=== PATIENT | female | born 1990 | race Caucasian/White ===

== ENCOUNTER 2017-11-01 11:52 | Emergency (ER) | payer OTHER, MEDICAID ==
[2017-11-01 13:59] LABS: HEMATOCRIT 37.2 % (36.0-47.0); HEMOGLOBIN 12.5 g/dl (12.0-16.0); MEAN CORPUSCULAR HEMOGLOBIN 31.5 pg (27.0-33.0); MEAN CORPUSCULAR HGB CONC 33.6 g/dl (32.0-36.5); MEAN CORPUSCULAR VOLUME 93.7 fl (80.0-96.0); PLATELET COUNT, AUTOMATED 186 10^3/uL (150-450); RED BLOOD COUNT 3.97 10^6/uL (4.00-5.40); RED CELL DISTRIBUTION WIDTH 12.5 % (11.5-14.5); WHITE BLOOD COUNT 10.3 10^3/uL (4.0-10.0)
[2017-11-01 14:23] LABS: HCG, SERUM QUANTITATIVE 61 MIU/ML
[2017-11-01 14:31] LABS: APPEARANCE, URINE HAZY (CLEAR); BACTERIA, URINE AUTO 1+ (NEGATIVE); BILIRUBIN, URINE AUTO NEGATIVE (NEGATIVE); BLOOD, URINE BLOOD 3+ (NEGATIVE); COLOR, URINE YELLOW (YELLOW); GLUCOSE, URINE (UA) AUTO NEGATIVE (NEGATIVE); KETONE, URINE AUTO NEGATIVE (NEGATIVE); LEUKOCYTE ESTERASE, URINE AUTO NEGATIVE (NEGATIVE); MUCUS, URINE MODERATE (NEGATIVE); NITRITE, URINE AUTO NEGATIVE (NEGATIVE); PROTEIN, URINE AUTO NEGATIVE (NEGATIVE); RBC, URINE AUTO TNTC /HPF (0-3); SPECIFIC GRAVITY URINE AUTO 1.012 (1.002-1.035); SQUAMOUS EPITHELIAL CELL UR AU 6 /HPF (0-6); UROBILINOGEN, URINE AUTO 0.2 mg/dL (0.0-2.0); WBC, URINE AUTO 8 /HPF (0-3)
[2017-11-01 16:38] LABS: CHLAMYDIA DNA AMPLIFICATION NEGATIVE (NEGATIVE); GC DNA AMPLIFICATION NEGATIVE (NEGATIVE)
== END 2017-11-01 16:50 | disposition home or self-care (01) ==
LOC: M ED 11:52
DX: O20.0 Threatened abortion (principal); Z3A.01 Less than 8 weeks gestation of pregnancy; O99.331 Smoking (tobacco) complicating pregnancy, first trimester; F17.210 Nicotine dependence, cigarettes, uncomplicated; Z88.8 Allergy status to other drugs, medicaments and biological substances
CPT/HCPCS: 76801

== ENCOUNTER → 2017-11-07 | Outpatient (CLI) | payer OTHER ==
[2017-11-07 14:32] LABS: HCG, SERUM QUANTITATIVE 4 MIU/ML
== END ==
LOC: M LAB 13:33
DX: O02.1 Missed abortion (principal)
CPT/HCPCS: 84702

== ENCOUNTER 2018-05-19 20:33 | Emergency (ER) | payer OTHER ==
[2018-05-19 21:05] LABS: BASO # 0.1 10^3/uL (0.0-0.2); BASO % 0.6 % (0.0-1.0); EOS # 0.4 10^3/uL (0.0-0.50); EOS % 4.3 % (0.0-3.0); HEMATOCRIT 37.6 % (36.0-47.0); HEMOGLOBIN 12.5 g/dl (12.0-15.5); IMMATURE GRANULOCYTE % 0.4 % (0-3.0); LYMPH # 3.3 10^3/uL (1.5-6.5); LYMPH % 32.8 % (24.0-44.0); MEAN CORPUSCULAR HEMOGLOBIN 31.4 pg (27.0-33.0); MEAN CORPUSCULAR HGB CONC 33.2 g/dl (32.0-36.5); MEAN CORPUSCULAR VOLUME 94.5 fl (80.0-96.0); MONO # 0.6 10^3/uL (0.0-0.8); NEUTROPHILS # 5.7 10^3/uL (1.8-7.7); NEUTROPHILS % 55.9 % (36.0-66.0); PLATELET COUNT, AUTOMATED 199 10^3/uL (150-450); RED BLOOD COUNT 3.98 10^6/uL (4.00-5.40); RED CELL DISTRIBUTION WIDTH 12.2 % (11.5-14.5); WHITE BLOOD COUNT 10.2 10^3/uL (4.0-10.0)
[2018-05-19] MEDS: ONDANSETRON 4MG/2ML VIAL (J2405) IV (21:05)
[2018-05-19] MEDS: NS 1,000 ML IV (21:05)
[2018-05-19] MEDS: KETOROLAC 30 MG/ML VIAL (J1885) IV (21:05)
[2018-05-19 21:23] LABS: KETONE, URINE AUTO RFX NEGATIVE (NEGATIVE); LEUKOCYTE ESTERASE UR AUTO RFX 2+ (NEGATIVE); NITRITE, URINE AUTO RFX NEGATIVE (NEGATIVE); RBC, URINE AUTO RFX 4 /HPF (0-3); SPECIFIC GRAVITY UR AUTO RFX 1.006 (1.002-1.035); SQUAM EPITHELIAL CELL UR AURFX 1 /HPF (0-6); WBC, URINE AUTO RFX 26 /HPF (0-3)
[2018-05-19 21:53] LABS: ALBUMIN 4.3 GM/DL (3.2-5.2); ALBUMIN/GLOBULIN RATIO 1.16 (1.00-1.93); ALKALINE PHOSPHATASE 62 U/L (45-117); ALT/SGPT 15 U/L (12-78); ANION GAP 7 MEQ/L (8-16); AST/SGOT 14 U/L (7-37); BILIRUBIN,DIRECT < 0.1 MG/DL (0.0-0.2); BILIRUBIN,TOTAL 0.4 MG/DL (0.2-1.0); BLOOD UREA NITROGEN 12 MG/DL (7-18); CALCIUM LEVEL 9.3 MG/DL (8.5-10.1); CARBON DIOXIDE LEVEL 28 MEQ/L (21-32); CHLORIDE LEVEL 109 MEQ/L (98-107); CREATININE FOR GFR 0.78 MG/DL (0.55-1.30); GLOMERULAR FILTRATION RATE > 60.0 (>60); GLUCOSE, FASTING 77 MG/DL (70-100); LIPASE 229 U/L (73-393); POTASSIUM SERUM 3.7 MEQ/L (3.5-5.1); SODIUM LEVEL 144 MEQ/L (136-145)
[2018-05-19] MEDS: MORPHINE 2 MG/ML 1ML SYRINGE (J2270) IV (22:01)
== END 2018-05-19 23:30 | disposition home or self-care (01) ==
LOC: M ED 20:33
DX: N30.01 Acute cystitis with hematuria (principal); Z87.442 Personal history of urinary calculi; Z72.0 Tobacco use; Z88.8 Allergy status to other drugs, medicaments and biological substances
CPT/HCPCS: J2405

== ENCOUNTER 2023-03-08 05:20 | Emergency (ER) | payer OTHER ==
[~2023-03-08] VITALS: Ht 157.5 cm; Wt 52.3 kg
[~2023-03-08 05:20] MED LIST: IBUP600T26 PO; MACR100C43 PO; OXYC-208 PO; PERC5TAB PO; TRAM100T13 PO
[2023-03-08 07:20] VITALS: BP 108/62; TEMP 97.1; O2SAT 99
[2023-03-08] MEDS ORDERED: AUGMENTIN 875 MG TAB PO ONE (07:30)
[2023-03-08] MEDS ORDERED: ACET-907 PO (07:30)
[2023-03-08] MEDS ORDERED: IBUP-1022 PO (07:30)
[2023-03-08] MEDS ORDERED: AMOX875T2 PO (07:32)
[2023-03-08] MEDS ORDERED: PSEU120T19 PO (07:32)
[2023-03-08] MEDS ORDERED: dexAMETHasone 4 MG TAB PO ONE (07:45)
[2023-03-08] MEDS ORDERED: dexAMETHasone 2 MG TAB PO ONE (07:45)
== END 2023-03-08 08:22 | disposition home or self-care (01) ==
LOC: M ED 05:20
DX: J02.0 Streptococcal pharyngitis (principal); H65.02 Acute serous otitis media, left ear; F17.200 Nicotine dependence, unspecified, uncomplicated; Z88.8 Allergy status to other drugs, medicaments and biological substances

== ENCOUNTER → 2024-02-29 | Outpatient (CLI) | payer OTHER ==
[~2024-02-29] MED LIST changes: +ACET-907 PO; +AMOX875T2 PO; +IBUP-1022 PO; +PSEU120T19 PO
== END ==
LOC: M RAD 12:22
PROVIDERS: ATTEND Anesthesiology Pain Medicine
DX: M54.50 Low back pain, unspecified (principal)

== ENCOUNTER 2024-05-10 23:23 | Emergency (ER) | payer OTHER ==
[~2024-05-10] VITALS: Ht 157.5 cm; Wt 48.2 kg
[2024-05-11 01:30] LABS: BASO # 0.1 10^3/uL (0.0-0.2); BASO % 0.8 % (0.0-1.0); EOS % 0.5 % (0.0-3.0); HEMATOCRIT 32.3 % (36.0-47.0); HEMOGLOBIN 11.2 g/dl (12.0-15.5); LYMPH # 2.3 10^3/uL (1.5-5.0); LYMPH % 34.6 % (24.0-44.0); MEAN CORPUSCULAR HEMOGLOBIN 32.2 pg (27.0-33.0); MEAN CORPUSCULAR HGB CONC 34.7 g/dl (32.0-36.5); MEAN CORPUSCULAR VOLUME 92.8 fl (80.0-96.0); MONO # 0.5 10^3/uL (0.0-0.8); MONO % 7.9 % (2.0-8.0); NEUTROPHILS # 3.7 10^3/uL (1.5-8.5); NEUTROPHILS % 55.9 % (36.0-66.0); PLATELET COUNT, AUTOMATED 210 10^3/uL (150-450); RED BLOOD COUNT 3.48 10^6/uL (4.00-5.40); WHITE BLOOD COUNT 6.6 10^3/uL (4.0-10.0)
[2024-05-11] MEDS: AMOXICILLIN 500 MG CAP PO ONE (01:35)
[2024-05-11 01:40] LABS: HCG, SERUM QUALITATIVE NEGATIVE (NEGATIVE)
[2024-05-11 01:43] LABS: ERYTHROCYTE SEDIMENTATION RATE 4 mm/hr (0-20)
[2024-05-11 01:46] LABS: C REACTIVE PROTEIN QUANTITATIV < 0.40 MG/DL (<1.0)
[2024-05-11 01:48] LABS: ALBUMIN 4.4 G/DL (3.2-5.2); ALKALINE PHOSPHATASE 55 U/L (46-116); ALT/SGPT 17 U/L (7.0-40); AST/SGOT 18 U/L (<34); BILIRUBIN,TOTAL 0.8 MG/DL (0.3-1.2); BLOOD UREA NITROGEN 13 MG/DL (9-23); CALCIUM LEVEL 8.9 MG/DL (8.5-10.1); CARBON DIOXIDE LEVEL 25 MMOL/L (20-31); CHLORIDE LEVEL 103 MMOL/L (98-107); CREATININE FOR GFR 0.79 MG/DL (0.55-1.30); GLOMERULAR FILTRATION RATE > 60.0 (>60); GLUCOSE, FASTING 90 MG/DL (60-100); MAGNESIUM LEVEL 2.1 MG/DL (1.8-2.4); POTASSIUM SERUM 3.5 MMOL/L (3.5-5.1); SODIUM LEVEL 136 MMOL/L (136-145); TOTAL PROTEIN 7.3 G/DL (5.7-8.2)
[2024-05-11] MEDS: KETOROLAC 30 MG/ML 1ML VIAL IV ONE (01:51)
[2024-05-11] MEDS: PSEUDOEPHEDRINE 30 MG TAB PO ONE (01:52)
[2024-05-11] MEDS ORDERED: KETOROLAC 30 MG/ML 1ML VIAL IM ONE (02:00)
[2024-05-11] MEDS ORDERED: AMOX875T2 PO (02:11)
[2024-05-11] MEDS ORDERED: FLON1SPR NARES (02:11)
[2024-05-11] MEDS ORDERED: METH-1164 PO (02:11)
[2024-05-11] MEDS ORDERED: IBUP-1022 PO (02:11)
[2024-05-11] MEDS ORDERED: ELIM5CRE2 TOP (02:11)
[2024-05-11 02:16] VITALS: BP 107/58; TEMP 97.9; O2SAT 100
[2024-05-11 02:27] LABS: RSV AMPLIFICATION NEGATIVE (NEGATIVE)
== END 2024-05-11 03:16 | disposition home or self-care (01) ==
LOC: M ED 23:23
DX: M62.838 Other muscle spasm (principal); B86 Scabies; H66.91 Otitis media, unspecified, right ear; F17.290 Nicotine dependence, other tobacco product, uncomplicated; Z88.8 Allergy status to other drugs, medicaments and biological substances; Z79.1 Long term (current) use of non-steroidal anti-inflammatories (NSAID); Z79.2 Long term (current) use of antibiotics; Z79.899 Other long term (current) drug therapy
CPT/HCPCS: 80053; 83735; 84703; 85025; 85652; 86140; 86618; 87631; 96374; 99283; J1885

== ENCOUNTER 2024-06-28 21:06 | Observation (INO) | payer OTHER ==
[~2024-06-28] VITALS: Ht 157.5 cm; Wt 53.8 kg
[~2024-06-28 21:06] MED LIST changes: +ELIM5CRE2 TOP; +FLON1SPR NARES; +METH-1164 PO
[2024-06-28 21:59] LABS: BASO % 0.6 % (0.0-1.0); EOS # 0.2 10^3/uL (0.0-0.5); HEMATOCRIT 29.1 % (36.0-47.0); HEMOGLOBIN 10.2 g/dl (12.0-15.5); LYMPH # 2.5 10^3/uL (1.5-5.0); LYMPH % 38.2 % (24.0-44.0); MEAN CORPUSCULAR HEMOGLOBIN 32.1 pg (27.0-33.0); MEAN CORPUSCULAR HGB CONC 35.1 g/dl (32.0-36.5); MEAN CORPUSCULAR VOLUME 91.5 fl (80.0-96.0); MONO # 0.6 10^3/uL (0.0-0.8); NEUTROPHILS # 3.2 10^3/uL (1.5-8.5); PLATELET COUNT, AUTOMATED 197 10^3/uL (150-450); RED BLOOD COUNT 3.18 10^6/uL (4.00-5.40); WHITE BLOOD COUNT 6.4 10^3/uL (4.0-10.0)
[2024-06-28 22:11] LABS: BARBITURATES URINE NEGATIVE (NEGATIVE); CANNABINOIDS URINE NEGATIVE (NEGATIVE); COCAINE METABOLITE URINE NEGATIVE (NEGATIVE); METHADONE URINE NEGATIVE (NEGATIVE); OPIATES URINE NEGATIVE (NEGATIVE); PHENCYCLIDINE URINE NEGATIVE (NEGATIVE)
[2024-06-28 22:12] LABS: AMPHETAMINES LEVEL URINE NEGATIVE (NEGATIVE); BENZODIAZEPINES URINE NEGATIVE (NEGATIVE)
[2024-06-28 22:14] LABS: CK-MB VALUE MASS 1.4 NG/ML (<3.6)
[2024-06-28 22:15] LABS: CPK CREATINE PHOSPHOKINASE 148 U/L (34-145); MB/CK RELATIVE INDEX 0.94 (< OR =4)
[2024-06-28 23:11] LABS: BLOOD UREA NITROGEN 13 MG/DL (9-23); CALCIUM LEVEL 9.3 MG/DL (8.5-10.1); CARBON DIOXIDE LEVEL 25 MMOL/L (20-31); CHLORIDE LEVEL 109 MMOL/L (98-107); CREATININE FOR GFR 0.81 MG/DL (0.55-1.30); GLOMERULAR FILTRATION RATE > 60.0 (>60); GLUCOSE, FASTING 83 MG/DL (60-100); POTASSIUM SERUM 3.8 MMOL/L (3.5-5.1); SODIUM LEVEL 140 MMOL/L (136-145)
[2024-06-28 23:13] LABS: THYROID STIMULATING HORMONE 1.899 uIU/ML (0.55-4.78)
[2024-06-28 23:22] LABS: APPEARANCE, URINE MANUAL CLEAR (CLEAR); COLOR, URINE MANUAL COLORLESS (YELLOW)
[2024-06-28 23:23] LABS: BILIRUBIN, URINE MANUAL NEGATIVE (NEGATIVE); BLOOD URINE MANUAL POSITIVE (NEGATIVE); GLUCOSE, URINE (UA) MANUAL NEGATIVE (NEGATIVE); KETONE, URINE MANUAL NEGATIVE (NEGATIVE); LEUKOCYTE ESTERASE, URINE MAN NEGATIVE (NEGATIVE); NITRITE, URINE MANUAL NEGATIVE (NEGATIVE); PROTEIN, URINE MANUAL NEGATIVE (NEGATIVE); SPECIFIC GRAVITY,URINE MANUAL 1.005 (1.002-1.035); UROBILINOGEN, URINE MANUAL NORMAL (NORMAL)
[2024-06-28 23:27] LABS: HCG, SERUM QUALITATIVE NEGATIVE (NEGATIVE)
[2024-06-28 23:35] LABS: PTH INTACT 24.6 PG/ML (18.5-88.0)
[2024-06-28 23:41] LABS: BACTERIA, URINE NONE SEEN; HYALINE CAST, URINE NONE SEEN /lpf (0-1); SQUAMOUS EPITHELIAL CELL URINE SMALL AMOUNT /hpf (SMALL AMT); WBC, URINE 0-1 /hpf (0-3)
[2024-06-29] VITALS (15 sets, daily range): BP systolic 105–114; BP diastolic 52–66; TEMP 97.7–98.7; O2SAT 98–100
[2024-06-29] MEDS ORDERED: ISOVUE-370 76% 100ML VIAL As Ordered ONE (00:21)
[2024-06-29] MEDS ORDERED: DOXY-440 PO (02:10)
[2024-06-29] MEDS ORDERED: HOLTER MONITOR XX (02:14)
[2024-06-29] MEDS: DOXYCYCLINE HYCLATE 100MG TABLET PO ONE (02:35)
[2024-06-29] MEDS ORDERED: MAALOX 30 ML SUSP *UDC PO PRN (04:30)
[2024-06-29] MEDS ORDERED: MOM 30ML SUSPENSION UDC PO PRN (04:30)
[2024-06-29] MEDS ORDERED: ACETAMINOPHEN 325 MG TAB PO PRN (04:30)
[2024-06-29] MEDS ORDERED: AMPH1CAP5 PO (04:32)
[2024-06-29] MEDS ORDERED: OXYC10TA12 PO (04:32)
[2024-06-29] MEDS ORDERED: HOME MED LIST COMPLETE! XX SCH (04:35)
[2024-06-29 06:58] LABS: ALBUMIN 3.8 G/DL (3.2-5.2); BILIRUBIN,DIRECT 0.2 MG/DL (<0.4); BILIRUBIN,TOTAL 0.5 MG/DL (0.3-1.2); TOTAL PROTEIN 6.5 G/DL (5.7-8.2)
[2024-06-29 06:59] LABS: CK-MB VALUE MASS 1.1 NG/ML (<3.6); MB/CK RELATIVE INDEX 0.96 (< OR =4)
[2024-06-29] MEDS: ENOXAPARIN 40MG/0.4ML SYRINGE (J1650 PER 10MG) SC SCH (09:00)
[2024-06-29] MEDS: DOCUSATE SODIUM 100MG CAPSULE PO SCH (09:00)
[2024-06-29] MEDS: DOXYCYCLINE HYCLATE 100MG TABLET PO SCH (12:47)
[2024-06-30] VITALS (9 sets, daily range): BP systolic 110–117; BP diastolic 64–67; TEMP 97.9–98.4; O2SAT 98–100
[2024-06-30 06:05] LABS: HEMATOCRIT 32.5 % (36.0-47.0); HEMOGLOBIN 10.7 g/dl (12.0-15.5); MEAN CORPUSCULAR HEMOGLOBIN 31.4 pg (27.0-33.0); MEAN CORPUSCULAR HGB CONC 32.9 g/dl (32.0-36.5); MEAN CORPUSCULAR VOLUME 95.3 fl (80.0-96.0); PLATELET COUNT, AUTOMATED 198 10^3/uL (150-450); RED BLOOD COUNT 3.41 10^6/uL (4.00-5.40); WHITE BLOOD COUNT 6.3 10^3/uL (4.0-10.0)
[2024-06-30 06:34] LABS: ALBUMIN 3.6 G/DL (3.2-5.2); ALKALINE PHOSPHATASE 53 U/L (35-104); ALT/SGPT 16 U/L (7.0-40); AST/SGOT 11 U/L (<34); BILIRUBIN,TOTAL 0.2 MG/DL (0.3-1.2); BLOOD UREA NITROGEN 15 MG/DL (9-23); CALCIUM LEVEL 9.2 MG/DL (8.5-10.1); CARBON DIOXIDE LEVEL 26 MMOL/L (20-31); CHLORIDE LEVEL 111 MMOL/L (98-107); CREATININE FOR GFR 0.78 MG/DL (0.55-1.30); GLOMERULAR FILTRATION RATE > 60.0 (>60); GLUCOSE, FASTING 120 MG/DL (60-100); MAGNESIUM LEVEL 1.9 MG/DL (1.8-2.4); POTASSIUM SERUM 4.1 MMOL/L (3.5-5.1); SODIUM LEVEL 142 MMOL/L (136-145); TOTAL PROTEIN 6.3 G/DL (5.7-8.2)
[2024-06-30] MEDS ORDERED: DOXY100T PO (10:57)
== END 2024-06-30 13:43 | disposition home or self-care (01) ==
LOC: M ED 21:06 → UNDOADMOB 21:07 → M ED INP 21:07 → UNDOADMOB 21:08 → M ED INP 21:08 → M PCU 06-29 16:58
PROVIDERS: ADMIT Student in an Organized Health Care Education/Training Program; ATTEND Student in an Organized Health Care Education/Training Program
DX: R41.82 Altered mental status, unspecified (principal); T62.2X1A Toxic effect of other ingested (parts of) plant(s), accidental (unintentional), initial encounter; R53.83 Other fatigue; R55 Syncope and collapse; R07.9 Chest pain, unspecified; K58.9 Irritable bowel syndrome, unspecified; F90.9 Attention-deficit hyperactivity disorder, unspecified type; J32.9 Chronic sinusitis, unspecified; R54 Age-related physical debility; R87.629 Unspecified abnormal cytological findings in specimens from vagina; W57.XXXA Bitten or stung by nonvenomous insect and other nonvenomous arthropods, initial encounter; R44.3 Hallucinations, unspecified; Z87.442 Personal history of urinary calculi; Z88.8 Allergy status to other drugs, medicaments and biological substances; Z79.899 Other long term (current) drug therapy; Z79.891 Long term (current) use of opiate analgesic; F17.290 Nicotine dependence, other tobacco product, uncomplicated
CPT/HCPCS: 36415; 70450; 71045; 71275; 72125; 74177; 80048; 80053; 80076; 80307; 81000; 81002; 82140; 82550; 82553; 83735; 83970; 84443; 84484; 84703; 85025; 85027; 87468; 87469; 87478; 87484; 87801; 93005; 93041; 94760; 99285; Q9967

== ENCOUNTER → 2025-06-04 | Outpatient (CLI) | payer OTHER ==
[~2025-06-04] MED LIST changes: +AMPH1CAP5 PO; +DOXY-440 PO; +DOXY100T PO; -ELIM5CRE2 TOP; +HOLTER MONITOR XX; -IBUP-1022 PO; +IBUP600T42 PO; +OXYC10TA12 PO; +PERM60CR8 TOP
[2025-06-04 18:19] LABS: PLATELET COUNT, AUTOMATED 200 10^3/uL (150-450)
[2025-06-04 19:18] LABS: HIV 1&2 SCREEN NEGATIVE (NEGATIVE)
[2025-06-04 19:24] LABS: Trichomonas vaginalis (AMP) NOT DETECTED (NEGATIVE)
[2025-06-04 19:26] LABS: HEPATITIS C VIRUS ABY INDEX 0.04 INDEX (<0.8)
[2025-06-04 19:47] LABS: GC DNA AMPLIFICATION NEGATIVE (NEGATIVE)
== END ==
LOC: M PLALAB 16:14
PROVIDERS: ATTEND Advanced Practice Midwife
DX: Z34.82 Encounter for supervision of other normal pregnancy, second trimester (principal)

== ENCOUNTER → 2025-06-26 | Outpatient (CLI) | payer OTHER | LOC: M WHC 06:53 | PROVIDERS: ATTEND Advanced Practice Midwife | DX: Z34.82 Encounter for supervision of other normal pregnancy, second trimester (principal) ==

== ENCOUNTER → 2025-07-27 | Outpatient (REF) | payer OTHER ==
[2025-07-27 17:59] LABS: APPEARANCE, URINE CLEAR (CLEAR); BACTERIA, URINE AUTO 1+ (NEGATIVE); BILIRUBIN, URINE AUTO NEGATIVE (NEGATIVE); BLOOD, URINE BLOOD NEGATIVE (NEGATIVE); GLUCOSE, URINE (UA) AUTO NEGATIVE (NEGATIVE); KETONE, URINE AUTO NEGATIVE (NEGATIVE); LEUKOCYTE ESTERASE, URINE AUTO 2+ (NEGATIVE); MUCUS, URINE SMALL (NEGATIVE); NITRITE, URINE AUTO NEGATIVE (NEGATIVE); PROTEIN, URINE AUTO NEGATIVE (NEGATIVE); RBC, URINE AUTO 2 /HPF (0-3); SPECIFIC GRAVITY URINE AUTO 1.014 (1.002-1.035); SQUAMOUS EPITHELIAL CELL UR AU 2 /HPF (0-6); UROBILINOGEN, URINE AUTO 0.2 mg/dL (0.0-2.0); WBC, URINE AUTO 9 /HPF (0-3)
== END ==
LOC: M SFHCWAGY 17:34
PROVIDERS: ATTEND Nurse Practitioner Family
DX: R30.0 Dysuria (principal)

== ENCOUNTER 2025-07-28 08:54 | Outpatient (CLI) | payer OTHER ==
[~2025-07-28] VITALS: Ht 157.5 cm; Wt 63.6 kg
[~2025-07-28 08:54] MED LIST changes: +ALBUTEROL SULFATE 2.5 MG/0.5 ML INH CONCENTRATE NEB SOLN INH PRN; +EPINEPHrine INJ 1 MG/ML 1ML AMP IM PRN; +diphenhydrAMINE 50 MG/ML VIAL IV PRN
[2025-07-28 09:10] VITALS: BP 100/59; O2SAT 98
[2025-07-28] MEDS: diphenhydrAMINE 25MG PO PRIOR TO INFUSION PO ONE (09:13)
[2025-07-28] MEDS: ACETAMINOPHEN 650MG PO PRIOR TO INFUSION PO ONE (09:13)
[2025-07-28] MEDS: IRON SUCROSE 200MG IVP IV ONE (09:42)
[2025-07-28 10:30] VITALS: BP 98/57; O2SAT 99
== END 2025-07-28 10:30 | disposition home or self-care (01) ==
LOC: M INFU 08:54
PROVIDERS: ATTEND Advanced Practice Midwife
DX: D50.9 Iron deficiency anemia, unspecified (principal); O99.012 Anemia complicating pregnancy, second trimester; Z88.8 Allergy status to other drugs, medicaments and biological substances
CPT/HCPCS: 96374; J1756

== ENCOUNTER 2025-08-04 09:36 | Outpatient (CLI) | payer OTHER ==
[~2025-08-04] VITALS: Ht 157.5 cm; Wt 65.9 kg
[2025-08-04] MEDS: IRON SUCROSE 200MG IVP IV ONE (09:59)
[2025-08-04] MEDS: diphenhydrAMINE 25MG PO PRIOR TO INFUSION PO ONE (10:00)
[2025-08-04] MEDS: ACETAMINOPHEN 650MG PO PRIOR TO INFUSION PO ONE (10:08)
[2025-08-04 10:20] VITALS: BP 100/53; O2SAT 100
== END 2025-08-04 10:25 | disposition home or self-care (01) ==
LOC: M INFU 09:36
PROVIDERS: ATTEND Advanced Practice Midwife
DX: O99.012 Anemia complicating pregnancy, second trimester (principal); D50.9 Iron deficiency anemia, unspecified; Z88.8 Allergy status to other drugs, medicaments and biological substances
CPT/HCPCS: 96374; J1756